=== PATIENT | male | born 1940 | race Caucasian/White ===

== ENCOUNTER 2017-08-11 14:29 | Observation (INO) ==
[2017-08-11 15:06] LABS: Basophils # 0.1 K/mcL (0.0-0.2); Basophils % 0.6 %; Eosinophils # 0.1 K/mcL (0.0-0.6); Eosinophils % 1.1 %; Hematocrit 43.7 % (37.5-50.1); Hemoglobin 15.1 g/dL (12.9-16.9); Immature Granulocytes % 0.2 % (0-4); Immature Platelets 4.8 % (1.1-6.1); Lymphocytes # 1.5 K/mcL (0.6-4.6); Lymphocytes % 15.6 %; Mean Corpuscular HGB Conc 34.6 g/dL (31.6-35.5); Mean Corpuscular Hemoglobin 28.8 pg (28.0-33.3); Mean Corpuscular Volume 83.2 fL (83.0-100.0); Mean Platelet Volume 10.7 fL (9.4-12.4); Monocytes # 0.7 K/mcL (0.0-1.3); Monocytes % 7.7 %; Neutrophils # 7.2 K/mcL (1.6-8.9); Platelet Count 251 K/mcL (140-400); Red Blood Count 5.25 M/mcL (4.19-5.50); Red Cell Distribution Width 13.3 % (11.5-14.5); Segmented Neutrophils % 74.8 %
[2017-08-11 15:23] LABS: Alanine Aminotransferase 16 Units/L (0-55); Albumin 4.3 g/dL (3.5-5.0); Albumin/Globulin Ratio 1.6 (1.1-2.2); Alkaline Phosphatase 69 Units/L (38-126); Aspartate Amino Transferase 22 Units/L (5-34); BUN/Creatinine Ratio 15 (6-26); Blood Urea Nitrogen 23 mg/dL (8-26); Calcium 9.9 mg/dL (8.6-10.8); Carbon Dioxide 22 mEq/L (19-29); Chloride 106 mEq/L (98-109); Globulin 2.7 g/dL (2.4-3.5); Glucose 127 mg/dL (70-99); Osmolality,Calculated 291 (280-300); Potassium 3.9 mEq/L (3.5-4.5); Sodium 138 mEq/L (136-145); eGFR For African Americans 54 (> 60); eGFR For Non-African Americans 44 (> 60)
[2017-08-11 15:25] LABS: Bilirubin,Total < 0.2 mg/dL (0.2-1.2)
[2017-08-11 15:43] LABS: Thyroid Stimulating Hormone 6.762 mcIU/mL (0.350-4.840)
--- NOTE | 2017-08-11 16:17 | Emergency Department Note ---
Disposition Clinical Impression: Syncope, near Disposition: Admitted As Inpatient Referrals: Shelly Acevedo MD [Primary Care Provider] - Forms: ED Satisfaction Letter Dizziness HPI - General Chief Complaint: ED Syncope Stated Complaint: Near Syncope Time Seen by Provider: 08/11/17 14:30 Source: patient, EMS Limitations: altered mental status Nursing Notes Reviewed: Yes Vital Signs Reviewed: Yes - History of Present Illness HPI Narrative: Patient presents with complaint of feeling like his in the past. Patient was working [employer] and the symptoms suddenly came on. EMS reports that patient was jittery and a decreased level of consciousness. Patient has had chest pain/shortness of breath. She denies fevers or chills. Patient's had dizziness patient denies change in appetite. - Related Data Allergies Allergy/AdvReac Type Severity Reaction Status Date / Time glipizide AdvReac Gastrointestinal Verified 08/11/17 16:01 Upset All systems ED: reviewed and negative except as stated. Neurological: Reports: weakness, confusion Past Medical History - Past Medical History Source: patient Medical history: Reports: CVA, hyperlipidemia, hypertension, other Psychiatric history: Reports: no psych history - Social History Smoking Status: Never smoker Smokeless Tobacco Status: No Alcohol use: Reports: none Drug use: Reports: none Physical Exam - General Limitations: altered mental status General appearance: alert - Head Head exam: atraumatic, normocephalic, normal inspection - Eye Eye exam: Present: normal appearance, PERRL, EOMI - ENT ENT exam: normal exam, normal oropharynx, mucous membranes moist - Neck Neck exam: Present: normal inspection, full ROM, trachea midline - Chest Chest inspection: Present: normal inspection, symmetric chest wall rise - Respiratory Respiratory exam: Present: normal lung sounds bilaterally - Cardiovascular Cardiovascular exam: Present: regular rate, normal rhythm, normal heart sounds - Abdominal Exam Abdominal exam: Present: soft, Non-Tender. Absent: tenderness, distention, guarding, rebound, rigidity - Extremities Exam Extremities exam: Present: normal inspection, full ROM. Absent: tenderness, pedal edema - Back Exam Back exam: Present: normal inspection, full ROM. Absent: tenderness - Neurological Exam Neurological exam: Present: alert, oriented X3 - Psychiatric Psychiatric exam: Present: normal affect, normal mood - Skin Skin exam: Present: warm, dry, intact, normal color Course Vital Signs Temperature 96.9 F L 08/11/17 14:31 Pulse Rate 62 08/11/17 14:31 Respiratory Rate 20 08/11/17 14:31 Blood Pressure 170/76 08/11/17 14:31 O2 Sat by Pulse Oximetry 100 08/11/17 14:31 Temperature 96.9 F L 08/11/17 14:31 Pulse Rate 62 08/11/17 14:31 Respiratory Rate 20 08/11/17 14:31 Blood Pressure 170/76 08/11/17 14:31 O2 Sat by Pulse Oximetry 100 08/11/17 14:38 Oxygen Delivery Oxygen Delivery Nasal Cannula Dizziness - Differential Diagnosis Likely: benign paroxysmal positional vertigo, orthostatic hypotension, cerebrovascular accident, transient cerebral ischemia - Lab Data Lab results reviewed: Yes I reviewed the patient's lab results. Result diagrams: 08/11/17 14:56 08/11/17 14:56 Lab Results 08/11/17 08/11/17 08/11/17 Range/Units 14:56 14:56 14:56 WBC 9.6 (4.3-11.1) K/mcL RBC 5.25 (4.19-5.50) M/mcL Hgb 15.1 (12.9-16.9) g/dL Hct 43.7 (37.5-50.1) % MCV 83.2 (83.0-100.0) fL MCH 28.8 (28.0-33.3) pg MCHC 34.6 (31.6-35.5) g/dL RDW 13.3 (11.5-14.5) % Plt Count 251 (140-400) K/mcL MPV 10.7 (9.4-12.4) fL Immature Gran % 0.2 (0-4) % Seg Neutrophils % 74.8 % Lymphocytes % 15.6 % Monocytes % 7.7 % Eosinophils % 1.1 % Basophils % 0.6 % Neutrophils # 7.2 (1.6-8.9) K/mcL Lymphocytes # 1.5 (0.6-4.6) K/mcL Monocytes # 0.7 (0.0-1.3) K/mcL Eosinophils # 0.1 (0.0-0.6) K/mcL Basophils # 0.1 (0.0-0.2) K/mcL Immature Plt Fraction 4.8 (1.1-6.1) % Sodium 138 (136-145) mEq/L Potassium 3.9 (3.5-4.5) mEq/L Chloride 106 (98-109) mEq/L Carbon Dioxide 22 (19-29) mEq/L BUN 23 (8-26) mg/dL Creatinine 1.53 H (0.72-1.25) mg/dL Est GFR ( Amer) 54 L (> 60) Est GFR (Non-Af Amer) 44 L (> 60) BUN/Creatinine Ratio 15 (6-26) Glucose 127 H (70-99) mg/dL Calculated Osmolality 291 (280-300) Lactic Acid 1.5 (0.5-2.2) mmol/L Calcium 9.9 (8.6-10.8) mg/dL Total Bilirubin < 0.2 L (0.2-1.2) mg/dL AST 22 (5-34) Units/L ALT 16 (0-55) Units/L Alkaline Phosphatase 69 (38-126) Units/L Troponin I (0-0.03) ng/mL Serum Total Protein 7.0 (6.0-8.3) g/dL Albumin 4.3 (3.5-5.0) g/dL Globulin 2.7 (2.4-3.5) g/dL Albumin/Globulin Ratio 1.6 (1.1-2.2) TSH 6.762 H (0.350-4.840) mcIU/mL Urine Color (Yellow) Urine Clarity (Clear) Urine pH (5.0-8.0) pH Units Ur Specific [place] (1.010-1.025) Urine Protein (Neg-Trace) mg/dL Urine Glucose (UA) (Normal) mg/dL Urine Ketones (Negative) mg/dL Urine Blood (Negative) Urine Nitrite (Negative) Urine Bilirubin (Negative) Urine Urobilinogen (Normal) mg/dL Ur Leukocyte Esterase (Negative) Urine Microscopic RBC (0-3) per hpf Ur Squamous Epith Cells (None-Few) per lpf Urine Bacteria (None-Few) per hpf Hyaline Casts (None-Few) per lpf 08/11/17 08/11/17 Range/Units 14:56 16:55 WBC (4.3-11.1) K/mcL RBC (4.19-5.50) M/mcL Hgb (12.9-16.9) g/dL Hct (37.5-50.1) % MCV (83.0-100.0) fL MCH (28.0-33.3) pg MCHC (31.6-35.5) g/dL RDW (11.5-14.5) % Plt Count (140-400) K/mcL MPV (9.4-12.4) fL Immature Gran % (0-4) % Seg Neutrophils % % Lymphocytes % % Monocytes % % Eosinophils % % Basophils % % Neutrophils # (1.6-8.9) K/mcL Lymphocytes # (0.6-4.6) K/mcL Monocytes # (0.0-1.3) K/mcL Eosinophils # (0.0-0.6) K/mcL Basophils # (0.0-0.2) K/mcL Immature Plt Fraction (1.1-6.1) % Sodium (136-145) mEq/L Potassium (3.5-4.5) mEq/L Chloride (98-109) mEq/L Carbon Dioxide (19-29) mEq/L BUN (8-26) mg/dL Creatinine (0.72-1.25) mg/dL Est GFR ( Amer) (> 60) Est GFR (Non-Af Amer) (> 60) BUN/Creatinine Ratio (6-26) Glucose (70-99) mg/dL Calculated Osmolality (280-300) Lactic Acid (0.5-2.2) mmol/L Calcium (8.6-10.8) mg/dL Total Bilirubin (0.2-1.2) mg/dL AST (5-34) Units/L ALT (0-55) Units/L Alkaline Phosphatase (38-126) Units/L Troponin I 0.03 (0-0.03) ng/mL Serum Total Protein (6.0-8.3) g/dL Albumin (3.5-5.0) g/dL Globulin (2.4-3.5) g/dL Albumin/Globulin Ratio (1.1-2.2) TSH (0.350-4.840) mcIU/mL Urine Color Yellow (Yellow) Urine Clarity Clear (Clear) Urine pH 7.5 (5.0-8.0) pH Units Ur Specific [place] 1.021 (1.010-1.025) Urine Protein Negative (Neg-Trace) mg/dL Urine Glucose (UA) Normal (Normal) mg/dL Urine Ketones Negative (Negative) mg/dL Urine Blood Negative (Negative) Urine Nitrite Negative (Negative) Urine Bilirubin Negative (Negative) Urine Urobilinogen Normal (Normal) mg/dL Ur Leukocyte Esterase Negative (Negative) Urine Microscopic RBC 0-3 (0-3) per hpf Ur Squamous Epith Cells Few (None-Few) per lpf Urine Bacteria None Seen (None-Few) per hpf Hyaline Casts None Seen (None-Few) per lpf - Radiology Data Radiology results reviewed: Yes I reviewed the patient's radiology results. Head CT 08/11/17 16:13 IMPRESSION: No acute intracranial abnormality. D/ / Carlos Martins MD / Carlos Martins MD Interpreting Provider: Carlos Martins MD Chest X-Ray 08/11/17 16:39 IMPRESSION: 1. No acute cardiopulmonary process identified. D/ / Kaiser Delgado MD / Kaiser Delgado MD Interpreting Provider: Kaiser Delgado MD - EKG Data EKG attestation: Yes I reviewed and interpreted this EKG. EKG results narrative: EKG shows electrically paced rhythm.
[2017-08-11 17:06] LABS: Bilirubin,Urine Negative (Negative); Blood,Urine Negative (Negative); Color,Urine Yellow (Yellow); Glucose,Urine (UA) Normal (Normal); Ketones,Urine Negative (Negative); Leukocyte Esterase,Urine Negative (Negative); Nitrite,Urine Negative (Negative); PH,Urine 7.5 pH Units (5.0-8.0); Protein,Urine Negative (Neg-Trace); Specific Gravity,Urine 1.021 (1.010-1.025); Urobilinogen,Urine Normal (Normal)
[2017-08-11 17:08] LABS: Bacteria,Urine None Seen per hpf (None-Few); Hyaline Casts,Urine None Seen per lpf (None-Few); RBC,Urine 0-3 per hpf (0-3); Squamous Epithelial Cell,Urine Few per lpf (None-Few)
[2017-08-11 17:09] LABS: Clarity,Urine Clear (Clear)
[2017-08-11] MEDS ORDERED: Naloxone 0.4 MG/ML INJ IVP PRN (20:50)
--- NOTE | 2017-08-11 21:14 | Internal Med History&Physical ---
<Jef Prince - Last Filed: 08/11/17 21:38> Date of Encounter: 08/11/17 Time of Encounter: 20:58 Assessment and Plan (1) Syncope, near Current visit: Yes Status: Acute Patient reports dizziness, weakness, shortness of breath, diaphoresis and presyncopal event this afternoon. Denied any obvious tachycardia or arrhythmia at the time however did admit that his pacer/AICD device fired. He does not know what type of pacer/AICD he has. He reports that it was placed in [place] approximately 6 weeks ago. Plan is to obtain records from [facility]. He is no longer using weakness, dizziness or diaphoresis, and has no focal neuro deficits Consult cardio as the patient will need a pacer interrogation- [facility] hospitalist to call cardiology Continuous telemetry Orthostatic vital signs Every shift neuro checks We will hold off on ordering echo cardiogram until we have obtained a full report from [facility] (2) Hypertension Current visit: Yes Status: Acute History of hypertension. Patient is hypertensive during this visit, takes a CCB and ARB at home and reports that typically manages his hypertension. We will continue home medication of CCB and ARB as well as add hydralazine 10 mg IV push when necessary ordered every 6 hours Qualifiers: Hypertension type: essential hypertension Qualified Code(s): I10 - Essential (primary) hypertension (3) HLD (hyperlipidemia) Current visit: No Status: Acute History of HLD not on a statin at home, no lipid panel on file. 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 Left upper and lower extremity strength greater than right. No new focal neuro deficits as of this admission. However since he was near syncopal we will continue to monitor neuro status and do every shift neuro checks. He is on aspirin and Plavix at home and I will continue these throughout the stay Qualifiers: CVA mechanism: unspecified Qualified Code(s): I63.9 - Cerebral infarction, unspecified (5) DVT prophylaxis Current visit: Yes Status: Acute Heparin subcutaneous 5000 units every 12 hours Internal Medicine - H&P: HPI Chief complaint: dizziness, presyncope Admitted From: Home Plans for Post Hospital Care: Home History of present illness: Mr. Hernandez is a 76 year old male with a past medical history of CVA, HLD, HTN, angioplasty with stents, pacer/ defibrillator who presented to [facility] today with dizziness and near syncopal episode. He reports that he was at the [employer] today and he began feeling extremely weak while walking and he decided to sit down and rest. While sitting down he became diaphoretic and had a near syncopal event. He reports that he did not pass out but he admits that he does have some memory loss from the time of event to the time he entered the squad. He states "I believe that I got overheated". He has a pacer defibrillator and he reports that a few weeks back he had it replaced. He says that he felt the defibrillator fire during the near syncopal event. Workup in the emergency department revealed troponin 0.03, creatinine 1.53 and TSH is 6.762. CT head is negative for acute intracranial abnormalities, chest x-ray negative for acute pulmonary process. He is being admitted for further workup and evaluation. Past Med Surg Social Fam HX - Past Medical History Medical history: CVA, hyperlipidemia, hypertension, other Psychiatric history: no psych history - Social History Smoking Status: Never smoker Smokeless Tobacco Status: No Alcohol use: none Drug use: none - Family History Mother Hx Family Cancer: Yes (Ovarian) Hx Family Endocrine Disorder: Yes (DM) Brother Hx Family Cardiac Disorders: Yes (CAD) Internal Medicine - H&P: Meds Amlodipine Besylate 5 mg PO DAILY 08/11/17 [History] Aspirin [Lo-Dose Aspirin EC] 81 mg PO DAILY 08/11/17 [History] Cholecalciferol (Vitamin D3) [Vitamin D3] 1,000 units PO DAILY 08/11/17 [History ] Clopidogrel [Plavix] 75 mg PO DAILY 08/11/17 [History] Gabapentin [Neurontin] 200 mg PO HS 08/11/17 [History] Klor-Con 10 10 tab PO DAILY 08/11/17 [History] Losartan Potassium [Cozaar] 50 mg PO DAILY 08/11/17 [History] Multivit-Min/FA/Lycopen/Lutein [Adults 50+ Multivitamin Tablet] 1 tab PO DAILY 08/11/17 [History] Spironolactone [Aldactone] 50 mg PO DAILY 08/11/17 [History] 3 Allergy/AdvReac Type Severity Reaction Status Date / Time glipizide AdvReac Gastrointestinal Verified 08/11/17 16:01 Upset All Systems PM: A 10-system review of systems was performed and is negative for pertinent findings except as documented above in the HPI. - Constitutional Constitutional: as per HPI, excessive sweating, fatigue, weakness, no fever(s), no falls - EENT Eyes: no blurry vision, no change in vision, no discharge, no loss of peripheral vision, no loss of vision, no pain, no photophobia, no seeing flashes , no spots in vision, no tunnel vision Ears: no ear discharge, no ear pain, no tinnitus Nose, mouth and throat: no dysphagia, no nasal discharge, no neck pain, no sore throat - Cardiovascular Cardiovascular ROS IM: as per HPI, dyspnea on exertion, syncope, no chest pain, no diaphoresis, no dyspnea, no edema, no irregular heart rhythm, no lightheadedness, no palpitations - Respiratory Respiratory: dyspnea on exertion, no cough, no dyspnea, no wheezing, no pain on inspiration, no chest congestion, no excessive phlegm production - Gastrointestinal Gastrointestinal: no abdominal pain, no diarrhea, no hematemesis, no hematochezia, no melena, no nausea, no vomiting - Musculoskeletal Musculoskeletal ROS IM: no numbness, no tingling - Integumentary Integumentary IM: no rash, no unusual bruising - Neurological Neurological ROS: no confusion, no convulsions, no focal weakness, no numbness, no tingling, no tremor(s) - Hematologic/Lymphatic Hematologic/Lymphatic: no easy bruising - Constitutional Vitals: Temp Pulse Resp BP Pulse Ox 98.1 F 60 16 170/68 99 08/11/17 20:40 08/11/17 20:40 08/11/17 20:40 08/11/17 20:40 08/11/17 20:40 General appearance: Present: cooperative, A&O X 3, no acute distress, answers questions appropriately - Head Head exam: Present: atraumatic, normocephalic - Eye Eye exam: Present: EOMI, PERRL, conjuntiva pink, sclera anicteric Pupils: Present: PERRL - Neck Neck exam general surgery: Present: supple, trachea midline. Absent: lymphadenopathy - Respiratory Respiratory exam: Present: CTAB. Absent: accessory muscle use, rales, rhonchi, wheezes - Cardiovascular Cardiovascular exam: Present: RRR, +S1, +S2. Absent: diastolic murmur, gallop, rubs, systolic murmur - GI/Abdominal GI/Abdominal exam: Present: normal bowel sounds, soft, no peritoneal signs. Absent: distended, tenderness - Extremities Exam Extremities exam: Present: warm, radial pulses palpable and symmetrical. Absent : calf tenderness, cyanotic, pedal edema - Neurological Exam Neurological exam: Present: CN II-XII intact, oriented X3, no focal deficits. Absent: pronater drift, facial droop, speech deficit - Expanded Neurological Exam Patient oriented to: Present: person, place, time Speech: Present: fluid speech Cranial Nerves: EOM's intact PM: Normal, gag reflex PM: Normal, nystagmus PM: Normal, tongue deviation PM: Normal Cerebellar function: finger to nose: Normal, heel to rodriguez: Normal Upper motor neuron: Babinski sign: Normal, Colt neglect: Normal, pronator drift : Abnormal Right (FROM PRIOR CVA), sensory extinction: Normal Sensory exam: LE 2 point discrimination: Normal, lower extremity light touch: Normal, UE 2 point discrimination: Normal, upper extremity light touch: Normal Neuro motor strength exam: LUE: 5 (LEFT STRENGTH GREATER THAN RT H/O CVA WITH RT DEFICIT), RUE: 5, LLE: 5, RLE: 5 Coma Scale Eye Opening: Spontaneous Coma Scale Motor Response: Obeys Commands Coma Scale Verbal Response: Oriented Coma Scale Total: 15 - Skin Skin exam: Present: dry, intact Internal Med - H&P Results - Labs CBC & Chem 7: 08/11/17 14:56 08/11/17 14:56 - EKG Data -: EKG Interpreted by Myself - EKG Data EKG comments: 08/11/17 21:26 The patient is a/V paced - Impressions ITS Impressions Pulmonary Perfusion Imaging 08/11/17 18:44 IMPRESSION: Low Probability for Pulmonary Embolus. D/ / Leon Jonas MD / Leon Jonas MD Interpreting Provider: Leon Jonas MD - Diagnostic Studies Other Images Status: image reviewed by me Additional comments: VQ scan negative for PE CT scan - head Status: image reviewed by me Additional comments: No acute intracranial abnormalities Chest x-ray Status: image reviewed by me Additional comments: No acute pulmonary process <Justin Meyers - Last Filed: 08/12/17 05:40> Date of Encounter: 08/11/17 Internal Medicine - H&P: HPI History of present illness: Mr. Hernandez is a 76 year old male All Systems PM: A 10-system review of systems was performed and is negative for pertinent findings except as documented above in the HPI. - Constitutional Vitals: Temp Pulse Resp BP Pulse Ox 97.7 F 59 16 170/67 97 08/12/17 04:56 08/12/17 04:56 08/12/17 04:56 08/12/17 04:56 08/12/17 04:56 Internal Med - H&P Results - Labs CBC & Chem 7: 08/11/17 14:56 08/11/17 14:56 Labs: Cardiac Enzymes 08/11/17 Range/Units 22:13 Troponin I 0.03 (0-0.03) ng/mL - Impressions ITS Impressions Pulmonary Perfusion Imaging 08/11/17 18:44 IMPRESSION: Low Probability for Pulmonary Embolus. D/ / Leon Jonas MD / Leon Jonas MD Interpreting Provider: Leon Jonas MD - Attending Attestation I have personally seen and examined the patient and discussed the care plan with advanced expectoration and negative with the findings. Patient has come in with the recurrent episodes of near syncope while he was sitting. It was accompanied with diaphoresis but no rosalia chest pain. Troponins were 0.03 in the ER and a VQ scan done in ER which is reported negative. Patient has history of coronary artery disease and AICD. His heart rate is noted around 60. Cardiology is consulted for pacemaker/AICD interrogation but I think probably his heart rate might need to be increased to see if this corrects the problem. His metabolic panel otherwise is unremarkable. IV last nursing's staff to check orthostatic blood pressure. Will check his serial cardiac enzymes also.
[2017-08-11] MEDS ORDERED: Aspirin Enteric Coated 81 MG Tablet PO SCH (21:30)
[2017-08-12 05:34] LABS: Basophils # 0.1 K/mcL (0.0-0.2); Basophils % 0.7 %; Eosinophils # 0.2 K/mcL (0.0-0.6); Eosinophils % 2.1 %; Hematocrit 43.1 % (37.5-50.1); Hemoglobin 14.6 g/dL (12.9-16.9); Immature Granulocytes % 0.4 % (0-4); Lymphocytes # 1.4 K/mcL (0.6-4.6); Lymphocytes % 16.4 %; Mean Corpuscular HGB Conc 33.9 g/dL (31.6-35.5); Mean Corpuscular Hemoglobin 28.4 pg (28.0-33.3); Mean Corpuscular Volume 83.9 fL (83.0-100.0); Mean Platelet Volume 10.8 fL (9.4-12.4); Monocytes # 0.9 K/mcL (0.0-1.3); Monocytes % 10.3 %; Platelet Count 259 K/mcL (140-400); Red Blood Count 5.14 M/mcL (4.19-5.50); Red Cell Distribution Width 13.5 % (11.5-14.5); Segmented Neutrophils % 70.1 %
[2017-08-12 05:42] LABS: Alanine Aminotransferase 15 Units/L (0-55); Albumin 3.9 g/dL (3.5-5.0); Albumin/Globulin Ratio 1.4 (1.1-2.2); Alkaline Phosphatase 63 Units/L (38-126); Aspartate Amino Transferase 21 Units/L (5-34); BUN/Creatinine Ratio 16 (6-26); Bilirubin,Total 0.5 mg/dL (0.2-1.2); Blood Urea Nitrogen 19 mg/dL (8-26); Calcium 9.5 mg/dL (8.6-10.8); Carbon Dioxide 23 mEq/L (19-29); Chloride 106 mEq/L (98-109); Chol/HDL Ratio 6.8 (0-4.9); Cholesterol 197 mg/dL (< 200); Globulin 2.7 g/dL (2.4-3.5); Glucose 84 mg/dL (70-99); HDL Cholesterol 29 mg/dL (40-59); LDL Cholesterol,Calculated 128 mg/dL (0-99); Osmolality,Calculated 285 (280-300); Sodium 137 mEq/L (136-145); Total Protein 6.6 g/dL (6.0-8.3); Triglycerides 202 mg/dL (< 150); eGFR For African Americans > 60 (> 60); eGFR For Non-African Americans 58 (> 60)
[2017-08-12] MEDS: *HR* Heparin 5,000 UNIT/ML VIAL SQ SCH ×2 (05:54→17:17)
[2017-08-12] MEDS: Aspirin Enteric Coated 81 MG Tablet PO SCH (09:13)
[2017-08-12] MEDS: amLODIPine 5 MG TABLET PO SCH (09:14)
--- NOTE | 2017-08-12 12:19 | Electrocardiograph Report ---
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
--- NOTE | 2017-08-12 17:39 | Internal Med Progress Note ---
Date of Encounter: 08/12/17 Time of Encounter: 17:37 - Assessment and plan (1) Syncope, near Current Visit: Yes Status: Acute Assessment and plan: Patient had dizziness, weakness, shortness of breath, diaphoresis, this was after a day. Exhaustion. He did not appreciate any palpitations. He did feel that his pacer/AICD went off. Currently awaiting records from [facility] to find out more information about his pacemaker. So far his symptoms have resolved. A new telemetry monitoring and neuro checks every shift. Echocardiogram if not available from [facility]'s records.. Cardiology consult and recommendations appreciated. Once records are available, a pacer/AICD will be checked. (2) Hypertension Current Visit: Yes Status: Acute Assessment and plan: Stable. Continue Norvasc, hydralazine when necessary, Cozaar daily, spironolactone. Qualifiers: Hypertension type: essential hypertension Qualified Code(s): I10 - Essential (primary) hypertension (3) HLD (hyperlipidemia) Current Visit: No Status: Acute Assessment and plan: On aspirin. She does not take any anti-cholesterol medications Qualifiers: Hyperlipidemia type: unspecified Qualified Code(s): E78.5 - Hyperlipidemia , unspecified (4) CVA (cerebral vascular accident) Current Visit: No Status: Acute Qualifiers: CVA mechanism: unspecified Qualified Code(s): I63.9 - Cerebral infarction, unspecified (5) DVT prophylaxis Current Visit: Yes Status: Acute - Subjective Interval history: Patient denies any further episodes of dizziness. Denies chest pain, shortness of breath, nausea/vomiting. - Constitutional Vitals: Temp Pulse Resp BP Pulse Ox 98.5 F 59 18 122/52 96 08/12/17 16:00 08/12/17 16:00 08/12/17 16:00 08/12/17 16:00 08/12/17 16:00 General appearance: Present: cooperative, A&O X 3, no acute distress, answers questions appropriately Exam: - Head Head exam: Present: atraumatic, normocephalic - Eye Eye exam: Present: EOMI, PERRL, conjuntiva pink, sclera anicteric Pupils: Present: PERRL - Neck Neck exam general surgery: Present: supple, trachea midline. Absent: lymphadenopathy - Respiratory Respiratory exam: Present: CTAB. Absent: accessory muscle use, rales, rhonchi, wheezes - Cardiovascular Cardiovascular exam: Present: RRR, +S1, +S2. Absent: diastolic murmur, gallop, rubs, systolic murmur - GI/Abdominal GI/Abdominal exam: Present: normal bowel sounds, soft, no peritoneal signs. Absent: distended, tenderness - Extremities Exam Extremities exam: Present: warm, radial pulses palpable and symmetrical. Absent : calf tenderness, cyanotic, pedal edema - Neurological Exam Neurological exam: Present: CN II-XII intact, oriented X3, no focal deficits. Absent: pronater drift, facial droop, speech deficit - Expanded Neurological Exam Patient oriented to: Present: person, place, time Speech: Present: fluid speech Cranial Nerves: EOM's intact PM: Normal, gag reflex PM: Normal, nystagmus PM: Normal, tongue deviation PM: Normal Cerebellar function: finger to nose: Normal, heel to rodriguez: Normal Upper motor neuron: Babinski sign: Normal, Colt neglect: Normal, pronator drift : Abnormal Right (FROM PRIOR CVA), sensory extinction: Normal Sensory exam: LE 2 point discrimination: Normal, lower extremity light touch: Normal, UE 2 point discrimination: Normal, upper extremity light touch: Normal Neuro motor strength exam: LUE: 5 (LEFT STRENGTH GREATER THAN RT H/O CVA WITH RT DEFICIT), RUE: 5, LLE: 5, RLE: 5 Coma Scale Eye Opening: Spontaneous Coma Scale Motor Response: Obeys Commands Coma Scale Verbal Response: Oriented Coma Scale Total: 15 Internal Medicine: Result - Labs CBC & Chem 7: 08/12/17 04:42 08/12/17 04:42 Labs: Short CBC 08/12/17 Range/Units 04:42 WBC 8.6 (4.3-11.1) K/mcL Hgb 14.6 (12.9-16.9) g/dL Hct 43.1 (37.5-50.1) % Plt Count 259 (140-400) K/mcL Neutrophils # 6.0 (1.6-8.9) K/mcL BMP 08/12/17 04:42 Sodium 137 Potassium 4.0 Chloride 106 Carbon Dioxide 23 BUN 19 Creatinine 1.22 Glucose 84 Calcium 9.5 Cardiac Enzymes 08/11/17 08/12/17 08/12/17 Range/Units 22:13 04:42 10:41 Troponin I 0.03 0.05 H* 0.04 H* (0-0.03) ng/mL Liver Function 08/12/17 Range/Units 04:42 Total Bilirubin 0.5 (0.2-1.2) mg/dL AST 21 (5-34) Units/L ALT 15 (0-55) Units/L Alkaline Phosphatase 63 (38-126) Units/L Albumin 3.9 (3.5-5.0) g/dL - Impressions Impressions Pulmonary Perfusion Imaging 08/11/17 18:44 IMPRESSION: Low Probability for Pulmonary Embolus. D/ / Leon Jonas MD / Leon Jonas MD Interpreting Provider: Leon Jonas MD Consult Discharge Plan - Plan Referrals: Shelly Acevedo MD [Primary Care Provider] -
[2017-08-12] MEDS ORDERED: Gabapentin 100 MG CAPSULE PO SCH (21:00)
[2017-08-13 05:46] LABS: Basophils # 0.1 K/mcL (0.0-0.2); Basophils % 0.6 %; Eosinophils # 0.2 K/mcL (0.0-0.6); Eosinophils % 1.8 %; Hematocrit 43.8 % (37.5-50.1); Hemoglobin 14.8 g/dL (12.9-16.9); Immature Granulocytes % 0.4 % (0-4); Lymphocytes # 1.5 K/mcL (0.6-4.6); Mean Corpuscular HGB Conc 33.8 g/dL (31.6-35.5); Mean Corpuscular Hemoglobin 28.5 pg (28.0-33.3); Mean Corpuscular Volume 84.2 fL (83.0-100.0); Mean Platelet Volume 10.7 fL (9.4-12.4); Monocytes # 1.1 K/mcL (0.0-1.3); Monocytes % 8.7 %; Neutrophils # 9.7 K/mcL (1.6-8.9); Platelet Count 250 K/mcL (140-400); Red Cell Distribution Width 13.6 % (11.5-14.5); Segmented Neutrophils % 76.5 %
[2017-08-13] MEDS: *HR* Heparin 5,000 UNIT/ML VIAL SQ SCH (05:54)
[2017-08-13 06:03] LABS: BUN/Creatinine Ratio 18 (6-26); Blood Urea Nitrogen 23 mg/dL (8-26); Calcium 9.2 mg/dL (8.6-10.8); Carbon Dioxide 23 mEq/L (19-29); Chloride 107 mEq/L (98-109); Glucose 90 mg/dL (70-99); Osmolality,Calculated 289 (280-300); Potassium 4.2 mEq/L (3.5-4.5); Sodium 138 mEq/L (136-145); eGFR For African Americans > 60 (> 60); eGFR For Non-African Americans 56 (> 60)
[2017-08-13] MEDS: amLODIPine 5 MG TABLET PO SCH (08:08)
[2017-08-13] MEDS: Aspirin Enteric Coated 81 MG Tablet PO SCH (08:08)
--- NOTE | 2017-08-13 10:27 | Event Note ---
Date of Encounter: 08/13/17 Time of Encounter: 10:23 - Cardiology Event Note Inpatient ICD check completed. He has a BiV ICD Guidant device. Device check showed no shock, no ATP. No VT. He was noted to have paced tachycardia at times. Recommend adding low dose beta-maria such as metoprolol succinate as discussed by [facility] Electric Operator. 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 Bravo. Please call with questions.
--- NOTE | 2017-08-13 14:02 | Discharge Summary ---
Date of Encounter: 08/13/17 Time of Encounter: 13:58 - Discharge Diagnosis (1) Syncope, near Priority: Primary Status: Acute (2) Hypertension Priority: Secondary Status: Acute Qualifiers: Hypertension type: essential hypertension Qualified Code(s): I10 - Essential (primary) hypertension (3) HLD (hyperlipidemia) Priority: Secondary Status: Acute Qualifiers: Hyperlipidemia type: unspecified Qualified Code(s): E78.5 - Hyperlipidemia , unspecified (4) CVA (cerebral vascular accident) Priority: Secondary Status: Acute Qualifiers: CVA mechanism: unspecified Qualified Code(s): I63.9 - Cerebral infarction, unspecified (5) DVT prophylaxis Priority: Secondary Status: Acute - Discharge Medications Home Medications: Amlodipine Besylate 5 mg PO DAILY 08/11/17 [History] Aspirin [Lo-Dose Aspirin EC] 81 mg PO DAILY 08/11/17 [History] Cholecalciferol (Vitamin D3) [Vitamin D3] 1,000 units PO DAILY 08/11/17 [History ] Clopidogrel [Plavix] 75 mg PO DAILY 08/11/17 [History] Gabapentin [Neurontin] 200 mg PO HS 08/11/17 [History] Losartan Potassium [Cozaar] 50 mg PO DAILY 08/11/17 [History] Multivit-Min/FA/Lycopen/Lutein [Adults 50+ Multivitamin Tablet] 1 tab PO DAILY 08/11/17 [History] Potassium Chloride [K-Tab ER] 10 meq PO DAILY 08/11/17 [History] Spironolactone [Aldactone] 50 mg PO DAILY 08/11/17 [History] Allergies/Adverse Reactions: 3 Allergy/AdvReac Type Severity Reaction Status Date / Time glipizide AdvReac Gastrointestinal Verified 08/11/17 16:01 Upset Date of admission: 08/11/17 18:32 Primary care physician: Shelly Acevedo Consults: 08/11/17 20:38 Consult to Cardiology [CONS] Routine Comment: Consulting Provider: Brain Laird Reason for Consult: Presyncopal event; patient has had recent pacer ICD placement and he reports that his ICD fired this afternoon during presyncopal event Time Notified: 20:39 Call Completed: No - Patient Status Disposition: Home, Self-Care Condition: Good Functional capacity at discharge: independent ambulation Overall status at discharge: patient is back to baseline - Discharge Instructions Follow Up With: Shelly Acevedo MD [Primary Care Provider] - 08/27/17 10:30 am - Diet and Activity Activity: increase activity as tolerated Diet: advance to your usual diet Interval History: Mr. Hernandez is a 76 year old male with a past medical history of CVA, HLD, HTN, angioplasty with stents, pacer/ defibrillator who presented to [facility] with dizziness and near syncopal episode. He reports that he was at the [employer] [place] feeling extremely weak while walking and he decided to sit down and rest. While sitting down he became diaphoretic and had a near syncopal event. He reports that he did not pass out but he admits that he does have some memory loss from the time of event to the time he entered the squad. He states "I believe that I got overheated". He has a pacer defibrillator and he reports that a few weeks back he had it replaced. He says that he felt the defibrillator fire during the near syncopal event. Workup in the emergency department revealed troponin 0.03, creatinine 1.53 and TSH is 6.762. CT head is negative for acute intracranial abnormalities, chest x-ray negative for acute pulmonary process. He was being admitted for further workup and evaluation. Hospital course: Troponin was trended and was stable. A V/Q scan was done and was negative for PE. Cardiology was consulted to evaluate pacemaker since patient believes it went off. Inpatient ICD check was completed. He has a BiV ICD Guidant device. Device check showed no shock, no ATP, no VT. He was noted to have paced tachycardia at times. Recommend adding low dose beta-maria such as discussed by [facility] Waste Management Engineer. It was recommended close out-pt f/u with his machine icer. Patient agreed to this and discharged with metoprolol tartrate. - Time Spent with Patient Total time spent providing and/or coordinating discharge services: - Constitutional Vitals: Temp Pulse Resp BP Pulse Ox 98.1 F 58 16 163/70 96 08/13/17 11:50 08/13/17 11:50 08/13/17 11:50 08/13/17 11:50 08/13/17 11:50 General appearance: Present: cooperative, A&O X 3, no acute distress, answers questions appropriately Exam: - Head Head exam: Present: atraumatic, normocephalic - Eye Eye exam: Present: EOMI, PERRL, conjuntiva pink, sclera anicteric Pupils: Present: PERRL - Neck Neck exam general surgery: Present: supple, trachea midline. Absent: lymphadenopathy - Respiratory Respiratory exam: Present: CTAB. Absent: accessory muscle use, rales, rhonchi, wheezes - Cardiovascular Cardiovascular exam: Present: RRR, +S1, +S2. Absent: diastolic murmur, gallop, rubs, systolic murmur - GI/Abdominal GI/Abdominal exam: Present: normal bowel sounds, soft, no peritoneal signs. Absent: distended, tenderness - Extremities Exam Extremities exam: Present: warm, radial pulses palpable and symmetrical. Absent : calf tenderness, cyanotic, pedal edema - Neurological Exam Neurological exam: Present: CN II-XII intact, oriented X3, no focal deficits. Absent: pronater drift, facial droop, speech deficit
[2017-08-13 16:15] VITALS: BP 165/66
== END 2017-08-13 17:45 | disposition home or self-care (01) ==
LOC: 2ANU 14:29 → EMEROO 14:29 → 2ANU 20:05
PROVIDERS: ADMIT Nurse Practitioner; ATTEND Student in an Organized Health Care Education/Training Program

== ENCOUNTER 2021-11-05 09:05 | Observation (INO) ==
[2021-11-05] MEDS ORDERED: Ondansetron 4 MG/2 ML VIAL IVP PRN (12:35)
[2021-11-05] MEDS ORDERED: Acetaminophen 325 MG TABLET PO PRN (12:35)
[2021-11-05] MEDS ORDERED: Melatonin 3 MG TABLET PO PRN (12:35)
[2021-11-05] MEDS ORDERED: Perflutren Lipid Microsphere 1.3 ML in 0.9 % Sodium Chloride 8.7 ML IVP PRN (13:05)
[2021-11-05 14:03] LABS: BUN/Creatinine Ratio 20 (6-26); Blood Urea Nitrogen 28 mg/dL (8-23); Calcium 9.2 mg/dL (8.6-10.3); Carbon Dioxide 24 mEq/L (23-29); Chloride 104 mEq/L (98-107); Creatine Kinase 76 Units/L (30-223); Glucose 96 mg/dL (70-105); Osmolality,Calculated 279 (280-300); Potassium 4.3 mEq/L (3.5-5.1); Sodium 132 mEq/L (136-145); eGFR For African Americans > 60 (> 60); eGFR For Non-African Americans 50 (> 60)
[2021-11-05] MEDS: carvediloL 25 MG TABLET PO SCH (15:54)
[2021-11-05] MEDS: Spironolactone 12.5 MG TABLET PO SCH (15:54)
[2021-11-05] MEDS: Aspirin Enteric Coated 81 MG Tablet PO SCH (15:54)
[2021-11-05] MEDS: Furosemide 20 MG TABLET PO SCH (15:54)
[2021-11-05] MEDS: *HR* Heparin 5,000 UNIT/ML VIAL SQ SCH (17:57)
[2021-11-06 01:09] LABS: Hematocrit 40.4 % (37.5-50.1); Hemoglobin 13.3 g/dL (12.9-16.9); Mean Corpuscular HGB Conc 32.9 g/dL (31.6-35.5); Mean Corpuscular Hemoglobin 28.7 pg (28.0-33.3); Mean Corpuscular Volume 87.1 fL (83.0-100.0); Mean Platelet Volume 10.6 fL (9.4-12.4); Platelet Count 241 K/mcL (140-400); Red Blood Count 4.64 M/mcL (4.19-5.50); Red Cell Distribution Width 14.6 % (11.5-14.5); White Blood Count 6.8 K/mcL (4.3-11.1)
[2021-11-06 01:33] LABS: BUN/Creatinine Ratio 16 (6-26); Blood Urea Nitrogen 26 mg/dL (8-23); Carbon Dioxide 23 mEq/L (23-29); Chloride 103 mEq/L (98-107); Glucose 84 mg/dL (70-105); Osmolality,Calculated 284 (280-300); Potassium 4.3 mEq/L (3.5-5.1); Sodium 135 mEq/L (136-145); Troponin I < 0.03 ng/mL (< 0.04); eGFR For African Americans 51 (> 60); eGFR For Non-African Americans 42 (> 60)
[2021-11-06] MEDS: *HR* Heparin 5,000 UNIT/ML VIAL SQ SCH (05:00)
[2021-11-06] MEDS: Furosemide 20 MG TABLET PO SCH (08:12)
[2021-11-06] MEDS: Aspirin Enteric Coated 81 MG Tablet PO SCH (08:12)
[2021-11-06] MEDS: Spironolactone 12.5 MG TABLET PO SCH (08:12)
[2021-11-06] MEDS: carvediloL 25 MG TABLET PO SCH (08:12)
[2021-11-06 10:53] VITALS: BP 110/56; PULSE 59; TEMP 97.5; O2SAT 95
== END 2021-11-06 12:58 | disposition home or self-care (01) ==
LOC: 3BNU → SUATTDRO 11:59
PROVIDERS: ADMIT Internal Medicine; ATTEND Internal Medicine